=== PATIENT | male | born 1975 | race Caucasian/White ===

== ENCOUNTER 2017-11-21 19:48 | Emergency (ER) | payer SELFPAY, OTHER, MEDICAID ==
[2017-11-21 22:18] LABS: ADD MAN DIFF? NO
[2017-11-21 22:29] LABS: WHITE BLOOD COUNT 9.6 10^3/ul (4.8-10.8)
[2017-11-21 22:29] LABS: BASOPHIL # 0.1 10^3/ul (0.0-0.1); BASOPHILS % 0.5 % (0.0-2.0); EOSINOPHILS # 0.3 10^3/ul (0.0-0.5); HEMATOCRIT 44.7 % (42.0-52.0); LYMPHOCYTES # 3.9 10^3/ul (0.8-2.9); LYMPHOCYTES % 40.1 % (15.0-51.0); MEAN CORPUSCULAR HGB CONC 35.8 g/dl (32.0-37.0); MEAN CORPUSCULAR VOLUME 86.6 fl (82.0-101.0); MEAN PLATELET VOLUME 10.6 fl (7.4-10.4); MONOCYTE # 0.6 10^3/ul (0.3-0.9); MONOCYTES % 5.9 % (0.0-11.0); NEUTROPHIL # 4.8 10^3/ul (1.6-7.5); NEUTROPHILS % 50.1 % (39.0-77.0); PLATELET COUNT 249 10^3/UL (140-415); RED BLOOD COUNT 5.16 10^6/ul (4.70-6.10); RED CELL DISTRIBUTION WIDTH 11.9 % (11.5-14.5)
[2017-11-21] MEDS: ALPRAZOLAM 1 MG TAB PO (22:31)
[2017-11-21] MEDS: KETOROLAC 15 MG INJ IV (22:31)
[2017-11-21] MEDS: SOD CHLORIDE 0.9% 1,000 ML IV (22:31)
[2017-11-21 22:50] LABS: ALANINE AMINOTRANSFERASE 46 IU/L (13-69); ALBUMIN 4.6 g/dl (3.3-4.9); ALBUMIN/GLOBULIN RATIO 1.43; ALKALINE PHOSPHATASE 116 IU/L (42-121); ANION GAP 16 (8-16); ASPARTATE AMINO TRANSFERASE 33 IU/L (15-46); BILIRUBIN,INDIRECT 0.9 mg/dl (0-1.1); BILIRUBIN,TOTAL 0.9 mg/dl (0.2-1.3); BLOOD UREA NITROGEN 15 mg/dl (7-20); CALCIUM 9.4 mg/dl (8.4-10.2); CARBON DIOXIDE 27 mmol/L (21-31); CHLORIDE 101 mmol/L (97-110); CREATININE 0.81 mg/dl (0.61-1.24); GLUCOSE 93 mg/dl (70-220); LIPASE 60 U/L (23-300); POTASSIUM 3.9 mmol/L (3.5-5.1); SODIUM 140 mmol/L (135-144); TOTAL PROTEIN 7.8 g/dl (6.1-8.1)
[2017-11-21 23:04] LABS: TROPONIN-I < 0.012 ng/ml (0.00-0.12)
== END 2017-11-22 | disposition home or self-care (01) ==
LOC: E/R 11-22
DX: M25.512 Pain in left shoulder (principal)
CPT/HCPCS: 36415; 71045; 80053; 83690; 84484; 85025; 93005; 96374; 99285-25

== ENCOUNTER 2018-03-18 21:38 | Emergency (ER) | payer MEDICAID ==
[2018-03-18 22:16] LABS: ADD MAN DIFF? NO
[2018-03-18 22:24] LABS: BASOPHIL # 0.1 10^3/ul (0.0-0.1); BASOPHILS % 0.6 % (0.0-2.0); EOSINOPHILS # 0.2 10^3/ul (0.0-0.5); EOSINOPHILS % 2.4 % (0.0-7.0); HEMATOCRIT 43.1 % (42.0-52.0); HEMOGLOBIN 15.5 g/dl (14.0-18.0); LYMPHOCYTES # 3.6 10^3/ul (0.8-2.9); MEAN CORPUSCULAR HEMOGLOBIN 31.2 pg (29.0-33.0); MEAN CORPUSCULAR VOLUME 86.7 fl (82.0-101.0); MEAN PLATELET VOLUME 10.6 fl (7.4-10.4); MONOCYTE # 0.5 10^3/ul (0.3-0.9); MONOCYTES % 5.8 % (0.0-11.0); NEUTROPHIL # 4.6 10^3/ul (1.6-7.5); NEUTROPHILS % 50.9 % (39.0-77.0); PLATELET COUNT 239 10^3/UL (140-415); RED BLOOD COUNT 4.97 10^6/ul (4.70-6.10); RED CELL DISTRIBUTION WIDTH 12.1 % (11.5-14.5)
[2018-03-18 22:24] LABS: WHITE BLOOD COUNT 9.1 10^3/ul (4.8-10.8)
[2018-03-18] MEDS: KETOROLAC 30 MG INJ IV (22:42)
[2018-03-18 22:43] LABS: ALANINE AMINOTRANSFERASE 41 IU/L (13-69); ALBUMIN 4.4 g/dl (3.3-4.9); ALBUMIN/GLOBULIN RATIO 1.29; ALKALINE PHOSPHATASE 107 IU/L (42-121); ANION GAP 16 (8-16); ASPARTATE AMINO TRANSFERASE 30 IU/L (15-46); BILIRUBIN,INDIRECT 1.3 mg/dl (0-1.1); BILIRUBIN,TOTAL 1.3 mg/dl (0.2-1.3); BLOOD UREA NITROGEN 13 mg/dl (7-20); CARBON DIOXIDE 25 mmol/L (21-31); CHLORIDE 107 mmol/L (97-110); CREATINE KINASE 167 IU/L (23-200); CREATININE 0.71 mg/dl (0.61-1.24); GLUCOSE 98 mg/dl (70-220); POTASSIUM 3.7 mmol/L (3.5-5.1); SODIUM 144 mmol/L (135-144); TOTAL PROTEIN 7.8 g/dl (6.1-8.1)
[2018-03-18 22:52] LABS: B-TYPE NATRIURETIC PEPTIDE 23 PG/ML (0-125); CK INDEX 1.2
[2018-03-18 22:54] LABS: CK-MB 2.08 ng/ml (0.0-2.4); INR 0.97; TROPONIN-I < 0.012 ng/ml (0.000-0.120)
[2018-03-18 22:55] LABS: PARTIAL THROMBOPLASTIN TIME 29.5 Sec (25.0-35.0)
[2018-03-18 23:10] LABS: D-DIMER < 220.00 ng/ml (<460)
== END 2018-03-19 00:47 | disposition home or self-care (01) ==
LOC: E/R 03-19 00:47
DX: M94.0 Chondrocostal junction syndrome [Tietze] (principal); I10 Essential (primary) hypertension; Z87.891 Personal history of nicotine dependence
CPT/HCPCS: 71045; 80053; 82550; 82553; 83880; 84484; 85025; 85378; 85610; 85730; 93005; 96374; 99285-25

== ENCOUNTER 2018-12-20 23:17 | Emergency (ER) | payer MEDICAID ==
[2018-12-21] MEDS: SOD CHLORIDE 0.9% 1,000 ML IV (00:33)
[2018-12-21] MEDS: DIPHENHYDRAMINE 50 MG INJ IV (00:33)
[2018-12-21] MEDS: METOCLOPRAMIDE 10 MG INJ IV (00:33)
[2018-12-21] MEDS: KETOROLAC 15 MG INJ IV (00:33)
== END 2018-12-21 04:01 | disposition home or self-care (01) ==
LOC: E/R 23:17
DX: R51 Headache (principal); R40.2142 Coma scale, eyes open, spontaneous, at arrival to emergency department; R40.2362 Coma scale, best motor response, obeys commands, at arrival to emergency department; R40.2252 Coma scale, best verbal response, oriented, at arrival to emergency department
CPT/HCPCS: 96374; 96375; 99284-25